=== PATIENT | female | born 1950 | race Caucasian/White ===

== ENCOUNTER 2017-07-22 12:30 | Outpatient (RCR) | payer OTHER ==
[~2017-07-22 12:30] MED LIST: HYGROTON25 MG PO; ZANTAC 7575 MG PO
== END 2017-07-23 14:26 ==
LOC: WSOT 12:30
DX: M19.031 Primary osteoarthritis, right wrist (principal); S63.501D Unspecified sprain of right wrist, subsequent encounter; Z90.710 Acquired absence of both cervix and uterus

== ENCOUNTER → 2017-08-06 | Outpatient (CLI) | payer BC | LOC: MC.RAD 14:00 | DX: Z12.31 Encounter for screening mammogram for malignant neoplasm of breast (principal) ==

== ENCOUNTER 2017-08-20 15:02 | Outpatient (RCR) | payer OTHER | END 2017-08-25 10:48 | LOC: WSOH 15:02 | DX: Z09 Encounter for follow-up examination after completed treatment for conditions other than malignant neoplasm (principal); S63.501D Unspecified sprain of right wrist, subsequent encounter; W01.0XXD Fall on same level from slipping, tripping and stumbling without subsequent striking against object, subsequent encounter; Y99.0 Civilian activity done for income or pay ==

== ENCOUNTER → 2018-05-12 | Outpatient (CLI) | payer BC | LOC: COL.RAD 08:16 | DX: S22.080A Wedge compression fracture of T11-T12 vertebra, initial encounter for closed fracture (principal); K76.0 Fatty (change of) liver, not elsewhere classified; Z90.49 Acquired absence of other specified parts of digestive tract; Z90.710 Acquired absence of both cervix and uterus; C50.919 Malignant neoplasm of unspecified site of unspecified female breast | CPT/HCPCS: A9503; Q9967 ==

== ENCOUNTER 2018-10-14 08:09 | Day surgery (SDC) | payer BC ==
[~2018-10-14] VITALS: Ht 162.6 cm; Wt 78.2 kg
[~2018-10-14 08:09] MED LIST changes: +HYGROTON 2525 MG/TAB PO; -HYGROTON25 MG PO
[2018-10-14 09:02] VITALS: BP 137/90; PULSE 88; TEMP 97.8
[2018-10-14 09:55] VITALS: BP 114/76; PULSE 100; TEMP 97
[2018-10-14 10:10] VITALS: BP 123/82; PULSE 86
[2018-10-14 10:25] VITALS: BP 121/82; PULSE 80
== END 2018-10-14 10:45 | disposition home or self-care (01) ==
LOC: SDCO 08:09
DX: Z12.11 Encounter for screening for malignant neoplasm of colon (principal); Z86.010 Personal history of colon polyps; D12.0 Benign neoplasm of cecum; Z79.899 Other long term (current) drug therapy
CPT/HCPCS: J2250; J2405; J3010; J7030

== ENCOUNTER → 2020-03-28 | Outpatient (CLI) | payer BC, MEDICARE | LOC: MC.RAD 13:50 | DX: Z12.31 Encounter for screening mammogram for malignant neoplasm of breast (principal); C50.212 Malignant neoplasm of upper-inner quadrant of left female breast ==